=== PATIENT | female | born 1980 | race Caucasian/White ===

== ENCOUNTER 2017-06-13 15:00 | Emergency (ER) | payer MEDICAID ==
[~2017-06-13] VITALS: Ht 162.6 cm; Wt 114.3 kg
[2017-06-13 15:17] VITALS: BP_SYST 141
--- NOTE | 2017-06-13 15:21 | NUR ---
Pt placed to ER waiting room in stable condition.
--- NOTE | 2017-06-13 15:45 | NUR ---
Pt placed to ER hallway. Pt c/o couging, sore throat, streaks of blood in sputum with yellow-green phlegm x 1 week. No respiratory distress noted.
--- NOTE | 2017-06-13 16:00 | NUR ---
TIA Tinsley at bedside to assess pt.
[2017-06-13 16:30] VITALS: BP_SYST 132
--- NOTE | 2017-06-13 16:30 | NUR ---
Patient given written and verbal discharge instructions and verbalizes understanding. ER MD discussed with patient the results and treatment provided. Patient in stable condition. ID arm band removed. Rx of Tesalon Perles, Clindamycine, Motrin, and albuterol given. Patient educated on pain management and to follow up with PMD. Pain Scale 0/10. Opportunity for questions provided and answered.
--- NOTE | 2017-06-13 16:45 | NUR ---
Note jennyniall in EDM - 06/13/17 at 1821 by NICOLAS Pt placed to [facility]. Pt c/o couging, sore throat, streaks of blood in sputum with yellow-green phlegm x 1 week. No respiratory distress noted.
== END 2017-06-13 16:30 | disposition home or self-care (01) ==
LOC: SED 15:00
DX: J03.90 Acute tonsillitis, unspecified (principal); J20.9 Acute bronchitis, unspecified; I10 Essential (primary) hypertension; F32.9 Major depressive disorder, single episode, unspecified; Z87.891 Personal history of nicotine dependence; Z88.1 Allergy status to other antibiotic agents; Z86.2 Personal history of diseases of the blood and blood-forming organs and certain disorders involving the immune mechanism
CPT/HCPCS: 71010; 81025; 99283

== ENCOUNTER 2017-09-10 16:53 | Emergency (ER) | payer MEDICAID ==
[~2017-09-10] VITALS: Ht 162.6 cm; Wt 117.9 kg
[2017-09-10 17:30] VITALS: BP_SYST 141
[2017-09-10] MEDS ORDERED: traMADol HCL HCL 50 MG TABLET (ULTRAM) PO ONE (19:00)
[2017-09-10 19:20] VITALS: BP_SYST 136
== END 2017-09-10 19:20 | disposition home or self-care (01) ==
LOC: SED 16:53
DX: R07.89 Other chest pain (principal); M54.2 Cervicalgia; I10 Essential (primary) hypertension; F32.9 Major depressive disorder, single episode, unspecified; Z88.1 Allergy status to other antibiotic agents; Z86.2 Personal history of diseases of the blood and blood-forming organs and certain disorders involving the immune mechanism; V49.9XXA Car occupant (driver) (passenger) injured in unspecified traffic accident, initial encounter; Y93.89 Activity, other specified; Y92.410 Unspecified street and highway as the place of occurrence of the external cause; Y99.8 Other external cause status
CPT/HCPCS: 71010; 81025; 99283

== ENCOUNTER 2019-10-25 17:15 | Emergency (ER) | payer MEDICAID ==
[~2019-10-25] VITALS: Ht 162.6 cm; Wt 121.1 kg
[2019-10-25 17:48] VITALS: BP_SYST 120
--- NOTE | 2019-10-25 17:54 | NUR ---
Patient triaged and placed in waiting room. VSS and patient appears in no acute distress at this time. Accompanied by , awaiting available bed, and MD notified of need for MSE.
--- NOTE | 2019-10-25 20:07 | NUR ---
Patient to ER chair to gown for evaluation. Side rails up. Report given to Rylie KIM.
--- NOTE | 2019-10-25 20:08 | NUR ---
Note kadie in EDM - 10/25/19 at 2014 by [email or web address] Patient to [facility] for evaluation. Side rails up.
--- NOTE | 2019-10-25 20:10 | NUR ---
Patient complains of left sided earache x 3 days. Pt denies N/V, fever, or recent cough. Per patient, left ear is tender when touched inside. No other injuries/complaints per patient or noted.
--- NOTE | 2019-10-25 20:11 | NUR ---
ER at bedside examining patient.
[2019-10-25 20:33] VITALS: BP_SYST 116
--- NOTE | 2019-10-25 20:33 | NUR ---
Patient given written and verbal discharge instructions and verbalizes understanding. ER MD discussed with patient the results and treatment provided. Patient in stable condition. ID arm band removed. Rx of Cortisporin, Auralgan given. Patient educated on pain management and to follow up with PMD. Pain Scale 0. Opportunity for questions provided and answered. Medication side effect fact sheet provided.
== END 2019-10-25 20:33 | disposition home or self-care (01) ==
LOC: SED 17:15
DX: H60.92 Unspecified otitis externa, left ear (principal); I10 Essential (primary) hypertension; F32.9 Major depressive disorder, single episode, unspecified; Z88.1 Allergy status to other antibiotic agents
CPT/HCPCS: 99283

== ENCOUNTER 2020-01-09 14:20 | Emergency (ER) | payer MEDICAID ==
[~2020-01-09] VITALS: Ht 162.6 cm; Wt 90.7 kg
[2020-01-09 14:54] VITALS: BP_SYST 156
[2020-01-09 15:19] VITALS: BP_SYST 156
== END 2020-01-09 15:19 | disposition home or self-care (01) ==
LOC: SED 14:20
DX: H60.92 Unspecified otitis externa, left ear (principal); I10 Essential (primary) hypertension; K21.9 Gastro-esophageal reflux disease without esophagitis; N28.9 Disorder of kidney and ureter, unspecified; Z86.79 Personal history of other diseases of the circulatory system; Z86.73 Personal history of transient ischemic attack (TIA), and cerebral infarction without residual deficits; Z86.2 Personal history of diseases of the blood and blood-forming organs and certain disorders involving the immune mechanism; Z88.1 Allergy status to other antibiotic agents
CPT/HCPCS: 99282; 99283

== ENCOUNTER 2020-09-06 16:41 | Emergency (ER) | payer MEDICAID, SELFPAY ==
[~2020-09-06] VITALS: Ht 165.1 cm; Wt 122.5 kg
[2020-09-06 16:59] VITALS: BP_SYST 166
--- NOTE | 2020-09-06 17:07 | NUR ---
PT ARRIVES FROM HOME W/ C/O TEMP 101, BODY ACHES, AND INCREASING GEN WEAK. PT DENIES AND SOB, N/V/D
--- NOTE | 2020-09-06 17:08 | NUR ---
PT IS CURRENTLY IN THE TENT
--- NOTE | 2020-09-06 17:09 | NUR ---
ER at bedside examining patient.
--- NOTE | 2020-09-06 17:10 | NUR ---
COVID SWAB COLLECTED AND SENT TO THE LAB
--- NOTE | 2020-09-06 17:14 | NUR ---
Patient given written and verbal discharge instructions and verbalizes understanding. ER MD discussed with patient the results and treatment provided. Patient in stable condition. ID arm band removed. Patient educated on pain management and to follow up with PMD. Pain Scale 0/10. Opportunity for questions provided and answered. Medication side effect fact sheet provided.
[2020-09-06 17:15] VITALS: BP_SYST 166
== END 2020-09-06 17:14 | disposition home or self-care (01) ==
LOC: SED 16:41
DX: R05 Cough (principal); Z20.828 Contact with and (suspected) exposure to other viral communicable diseases
CPT/HCPCS: 99283; U0003; C9803

== ENCOUNTER 2022-03-14 09:19 | Emergency (ER) | payer MEDICAID ==
[~2022-03-14] VITALS: Ht 157.5 cm; Wt 117.9 kg
[2022-03-14 09:24] VITALS: BP_SYST 140
--- NOTE | 2022-03-14 09:30 | NUR ---
Patient to ER bed 2 for evaluation. Side rails up. Report given to Darshan KIM.
--- NOTE | 2022-03-14 09:36 | NUR ---
PT WALKED TO ROOM BED2 WITH CO NECK PAIN X 3 DAYS. NO FURHTER CO. NO ACUTE DISTRESS.
--- NOTE | 2022-03-14 09:52 | NUR ---
DR. NANCE BEDSIDE TO EXAMINE PT.
[2022-03-14] MEDS ORDERED: KETOROLAC TROMETHAMINE 30 MG VIAL IM ONE (10:00)
[2022-03-14] MEDS ORDERED: DIAZEPAM 5 MG TABLET (VALIUM) PO ONE (10:00)
--- NOTE | 2022-03-14 10:18 | NUR ---
URINE HCG DONE, NEGATIVE. TORADOL AND VALIUM GIVEN
[2022-03-14] MEDS ORDERED: NAPR-686 PO (11:15)
--- NOTE | 2022-03-14 12:04 | NUR ---
Patient given written and verbal discharge instructions and verbalizes understanding. ER MD discussed with patient the results and treatment provided. Patient in stable condition. ID arm band removed. IV catheter removed intact and dressing applied, no active bleeding. Patient educated on pain management and to follow up with PMD. Pain Scale 1. Opportunity for questions provided and answered. Medication side effect fact sheet provided.
[2022-03-14 12:06] VITALS: BP_SYST 124
== END 2022-03-14 12:06 | disposition home or self-care (01) ==
LOC: SED 09:19
DX: M54.2 Cervicalgia (principal)
CPT/HCPCS: 81025; 96372; 99283; J1885

== ENCOUNTER 2022-09-15 06:45 | Emergency (ER) | payer MEDICAID ==
[~2022-09-15] VITALS: Ht 162.6 cm; Wt 108.9 kg
[~2022-09-15 06:45] MED LIST: NAPR-686 PO
[2022-09-15 06:55] VITALS: BP_SYST 139
--- NOTE | 2022-09-15 07:00 | NUR ---
PT FROM HOME WITH C/O OF LEFT HAND PAIN. PT REPORTS SLAMMING HAND IN CLOSET DOOR., LEFT RING FINGER HAS SIGNIFICANT BRUSING. NO DEFORMITY NOTED. MADE AWARE.
[2022-09-15] MEDS ORDERED: IBUPROFEN 600 MG TABLET PO ONE (07:15)
--- NOTE | 2022-09-15 07:58 | NUR ---
Patient to ER bed triage to gown for evaluation. Side rails up.
--- NOTE | 2022-09-15 08:00 | NUR ---
ER at triage examining patient.
[2022-09-15] MEDS ORDERED: IBUP-1969 PO (09:02)
--- NOTE | 2022-09-15 09:18 | NUR ---
Finger splint applied pt tolerated well.
--- NOTE | 2022-09-15 09:19 | NUR ---
Patient given written and verbal discharge instructions and verbalizes understanding. ER MD discussed with patient the results and treatment provided. Patient in stable condition. ID arm band removed. Rx of motrin given. Patient educated on pain management and to follow up with PMD. Pain Scale 3. Opportunity for questions provided and answered. Medication side effect fact sheet provided.
== END 2022-09-15 09:19 | disposition home or self-care (01) ==
LOC: SED 06:45
DX: S60.042A Contusion of left ring finger without damage to nail, initial encounter (principal); Z88.1 Allergy status to other antibiotic agents; Z79.899 Other long term (current) drug therapy; W23.1XXA Caught, crushed, jammed, or pinched between stationary objects, initial encounter; Y93.89 Activity, other specified; Y92.89 Other specified places as the place of occurrence of the external cause; Y99.8 Other external cause status
CPT/HCPCS: 99283

== ENCOUNTER 2023-11-10 16:55 | Emergency (ER) | payer MEDICAID ==
[~2023-11-10] VITALS: Ht 157.5 cm; Wt 113.4 kg
[~2023-11-10 16:55] MED LIST changes: +IBUP-1969 PO
[2023-11-10 17:00] VITALS: BP_SYST 153; PULSE 82; RESP 19; TEMP 97.8; O2SAT 96
[2023-11-10 17:53] LABS: COVID19 ANTIGEN SOFIA FIA NEGATIVE (NEGATIVE)
[2023-11-10 17:54] LABS: INFLUENZA TYPE A Negative (NEGATIVE); INFLUENZA TYPE B NEGATIVE (NEGATIVE)
[2023-11-10] MEDS ORDERED: BENZ100C92 PO (19:12)
[2023-11-10] MEDS ORDERED: ALBMDI INH (19:12)
[2023-11-10] MEDS ORDERED: GUAI-723 PO (19:12)
[2023-11-10] MEDS ORDERED: PRED20TA PO (19:12)
[2023-11-10] MEDS: IBUPROFEN 600 MG TABLET PO ONE (19:17)
[2023-11-10] MEDS: DEXAMETHASONE SOD PHOSPHATE 10 MG/ML VIAL PO ONE (19:17)
[2023-11-10 19:48] VITALS: BP_SYST 153; PULSE 82; RESP 19; TEMP 99; O2SAT 97
== END 2023-11-10 19:20 | disposition home or self-care (01) ==
LOC: SED 16:55
DX: J20.9 Acute bronchitis, unspecified (principal); B34.9 Viral infection, unspecified; R05.9 Cough, unspecified; R51.9 Headache, unspecified; M79.10 Myalgia, unspecified site; Z88.1 Allergy status to other antibiotic agents; Z79.899 Other long term (current) drug therapy; Z20.822 Contact with and (suspected) exposure to COVID-19
CPT/HCPCS: 99283; 87426; 86403; 36415; 87081; 87804 ×2; J1100